=== PATIENT | female | born 1965 | race Caucasian/White ===

== ENCOUNTER → 2016-08-03 | Outpatient (CLI) | payer OTHER ==
[~2016-08-03] MED LIST: ADVAIR 250-501 EACH IH; ALBUTEROL SULF8.5 GM IH; ALBUTEROL17 GM IH; ALEVE220 MG PO; BACTRIM,SEPT1 TABLET PO; CIPRO500 MG PO; FLAGYL500 MG PO; FLOVENT 22120 INHALA IH; HYDROCODON-ACE1 EAC7 PO; HYDROCODON-ACE1 EAC9 PO; MS CONTIN,ORAMO15 M1 PO; OXYCODONE-APAP1 EACH; PEPCID20 MG PO; PHENERGAN25 MG PR; PROMETHAZINE HC25 M1 PO; ZOFRAN ODT4 MG PO
== END | disposition home or self-care (01) ==
LOC: NUC 07-27 09:30
DX: R10.13 Epigastric pain (principal)
CPT/HCPCS: 78226; A9537

== ENCOUNTER → 2016-09-20 | Outpatient (CLI) | payer OTHER ==
[~2016-09-20] VITALS: Ht 162.6 cm; Wt 72.6 kg
[~2016-09-20] MED LIST changes: +OMEPRAZOLE40 M1 PO
[2016-09-20 09:01] LABS: HEMATOCRIT 45.9 % (36.0-46.0); MCV 89.8 FL (83-99)
[2016-09-20 09:57] LABS: ANION GAP 9 MEQ/L (2-14); CHLORIDE 105 MEQ/L (99-109); GFR ESTIMATE (CALCULATED) > 59 mL/min/; GLUCOSE 98 mg/dL (70-99); POTASSIUM 4.1 MEQ/L (3.7-5.4); SAMPLE HEMOLYSIS CHECK 0; SAMPLE ICTERIC CHECK 0; SAMPLE LIPEMIA CHECK 0; SODIUM 139 MEQ/L (136-147); UREA NITROGEN (BUN) 13 mg/dL (9-23)
== END | disposition home or self-care (01) ==
LOC: AMB 08:14
PROVIDERS: Internal Medicine Gastroenterology
DX: R10.11 Right upper quadrant pain (principal); R10.13 Epigastric pain; R93.2 Abnormal findings on diagnostic imaging of liver and biliary tract; K21.9 Gastro-esophageal reflux disease without esophagitis; Z87.11 Personal history of peptic ulcer disease; R01.1 Cardiac murmur, unspecified; G89.29 Other chronic pain; M54.9 Dorsalgia, unspecified; Z79.891 Long term (current) use of opiate analgesic; Z87.891 Personal history of nicotine dependence
CPT/HCPCS: 80048; 85014; 85018; C1726; J0330; J1100; J2405; J3010

== ENCOUNTER 2017-09-08 08:27 | Emergency (ER) | payer OTHER ==
[~2017-09-08] VITALS: Ht 162.6 cm; Wt 74.1 kg
[2017-09-08] MEDS ORDERED: FLEXERIL10 MG PO (13:13)
[2017-09-08 13:41] VITALS: BP 133/66
== END 2017-09-08 13:42 | disposition home or self-care (01) ==
LOC: EME 08:27
DX: M54.5 Low back pain (principal); M85.88 Other specified disorders of bone density and structure, other site; K21.9 Gastro-esophageal reflux disease without esophagitis; J45.909 Unspecified asthma, uncomplicated; G89.29 Other chronic pain; F41.9 Anxiety disorder, unspecified; F17.200 Nicotine dependence, unspecified, uncomplicated; Z79.891 Long term (current) use of opiate analgesic; Z98.890 Other specified postprocedural states; Z90.710 Acquired absence of both cervix and uterus
CPT/HCPCS: 72100; 99281; 99285; J1885; J2060